=== PATIENT | male | born 1960 | race African-American/Black ===

== ENCOUNTER 2022-09-14 15:44 | Inpatient (IN) | payer MEDICARE, MEDICAID ==
[~2022-09-14] VITALS: Ht 175.3 cm; Wt 54.9 kg
[2022-09-14] MEDS ORDERED: SODIUM CHLORIDE 0.9% 1,000 ML IV ONE (16:30)
[2022-09-14 16:49] LABS: BASOPHILS % 1.4 % (0.0-2.0); EOSINOPHILS % 1.4 % (0.0-5.0); HEMATOCRIT. 26.5 % (42.0-52.0); HEMOGLOBIN. 8.5 g/dL (14.0-18.0); MEAN CORPUSCULAR HEMOGLOBIN 27.4 pg (28.0-32.0); MEAN CORPUSCULAR VOLUME 85.6 fL (80.0-94.0); MEAN PLATELET VOLUME 8.1 fl (7.4-10.4); NEUTROPHILS % 59.2 % (40.0-76.0); PLATELET 375 x1000/uL (130-400); RED BLOOD CELL COUNT 3.09 mill/uL (4.7-6.1); RED CELL DISTRIBUTION WIDTH 22.3 % (11.6-14.6)
[2022-09-14 16:50] LABS: CLARITY URINE CLEAR (CLEAR); COLOR URINE YELLOW (YELLOW); KETONES URINE NEGATIVE (NEGATIVE); LEUKOCYTE ESTERASE URINE NEGATIVE (NEGATIVE); NITRITE URINE NEGATIVE (NEGATIVE); OCCULT BLOOD URINE TRACE (NEGATIVE); PH URINE 5.5 (4.5-8.0); PROTEIN URINE TRACE (NEGATIVE); SPECIFIC GRAVITY URINE 1.029 (1.005-1.030); UROBILINOGEN URINE 0.2 E.U./dL (0.2-1.0)
[2022-09-14 16:55] LABS: CHLORIDE 90 mEq/L (98-107)
[2022-09-14 17:44] LABS: PLATELET ESTIMATE NORMAL
[2022-09-14 18:18] LABS: BG BASE EXCESS -2.2 mmol/L (-2.0-2.0); BG CARBOXYHEMOGLOBIN 0.8 % (0.5-1.5); BG FRACTION INSPIRED OXYGEN 21; BG HCO3 ACT 21.9 mmol/L (22.0-26.0); BG METHEMOGLOBIN 0.2 % (0.0-1.5); BG PCO2 34.6 mmHg (35.0-45.0); BG PH 7.419 (7.350-7.450); BG PO2 89.7 mmHg (75.0-100.0); BG SAMPLE SITE RIGHT RADIAL; BG TOTAL HEMOGLOBIN 9.7 g/dL (12.0-18.0); BG VENT MODE ROOM AIR
[2022-09-14] MEDS ORDERED: INSULIN REGULAR (HUMULIN R) 300UNITS/3ML VIAL SUBCUT ONE (18:45)
[2022-09-14] MEDS ORDERED: CLONIDINE 0.1MG TABLET PO PRN (23:15)
[2022-09-14] MEDS ORDERED: HYDROCODONE/ACETAMINOPHEN 5/325MG TABLET PO PRN (23:15)
[2022-09-14] MEDS ORDERED: ONDANSETRON HCL 4MG/2ML INJ IV PRN (23:15)
[2022-09-14] MEDS ORDERED: IPRATROPIUM/ALBUTEROL 0.5-3(2.5)MG/3ML NEB NEB PRN (23:15)
[2022-09-14] MEDS ORDERED: MAGNESIUM/ALUMINUM HYDROXIDE/SIMETHICONE 30ML UDC PO PRN (23:15)
[2022-09-15] MEDS: SODIUM CHLORIDE 0.9% 1,000 ML IV SCH (00:05)
[2022-09-15 01:00] VITALS: BP_SYST 135; BP_DIAS 65; BP_DIAS 75
[2022-09-15 01:20] LABS: *AMPHETAMINES SCREEN URINE NEGATIVE (NEGATIVE); *BARBITURATES SCREEN URINE NEGATIVE (NEGATIVE); *BENZODIAZEPINES SCREEN URINE NEGATIVE (NEGATIVE); *COCAINE SCREEN URINE PRESUMTIVE POSITIVE (NEGATIVE); CANNABINOID URINE SCREEN NEGATIVE (NEGATIVE); METHADONE URINE SCREEN NEGATIVE (NEGATIVE); OPIATES URINE SCREEN NEGATIVE (NEGATIVE); PHENCYCLIDINE URINE SCREEN NEGATIVE (NEGATIVE)
[2022-09-15 03:03] LABS: HEPATITIS B SURFACE ANTIGEN REACTIVE PEND CONFIR
[2022-09-15] MEDS: ENOXAPARIN 40MG/0.4ML SYR SUBCUT SCH (10:47)
[2022-09-15] MEDS: INSULIN LISPRO 100 UNITS/ML SUBCUT SCH ×3 (10:48→17:20)
[2022-09-15 12:00] VITALS: BP 137/71
[2022-09-15] MEDS ORDERED: AZITHROMYCIN 500 MG TABLET PO NR (17:00)
[2022-09-15] MEDS ORDERED: CEFTRIAXONE 1 G PREMIX 50 ML IV SCH (17:00)
[2022-09-15 20:00] VITALS: BP 118/79
[2022-09-15] MEDS: INSULIN GLARGINE 100 UNITS/ML SUBCUT SCH (21:19)
[2022-09-16] VITALS: BP 123/74
[2022-09-16 04:00] VITALS: BP 166/76
[2022-09-16] MEDS: INSULIN LISPRO 100 UNITS/ML SUBCUT SCH ×3 (06:35→18:13)
[2022-09-16 08:00] VITALS: BP 145/84
[2022-09-16] MEDS: ENOXAPARIN 40MG/0.4ML SYR SUBCUT SCH (09:00)
[2022-09-16] MEDS: AZITHROMYCIN 500 MG TABLET PO SCH (09:21)
[2022-09-16 16:00] VITALS: BP 127/64
[2022-09-16] MEDS ORDERED: NALOXONE HCL 0.4MG/ML VIAL IV PRN (16:00)
[2022-09-16] MEDS: CEFTRIAXONE 1,000 MG in DEXTROSE 5% WATER 50 ML IV SCH (18:13)
[2022-09-16 20:00] VITALS: BP 141/88
[2022-09-16] MEDS: INSULIN GLARGINE 100 UNITS/ML SUBCUT SCH (21:11)
[2022-09-16] MEDS: ACETAMINOPHEN 325MG TABLET PO PRN (22:59)
[2022-09-17] VITALS: BP 127/65
[2022-09-17] MEDS: SODIUM CHLORIDE 0.9% 1,000 ML IV SCH ×3 (01:33→21:26)
[2022-09-17 04:00] VITALS: BP 139/76
[2022-09-17 08:00] VITALS: BP 159/79
[2022-09-17] MEDS: ENOXAPARIN 40MG/0.4ML SYR SUBCUT SCH (10:09)
[2022-09-17] MEDS: AZITHROMYCIN 500 MG TABLET PO SCH (10:10)
[2022-09-17 11:13] LABS: BASOPHILS % 1.2 % (0.0-2.0); EOSINOPHILS % 0.8 % (0.0-5.0); HEMATOCRIT. 29.7 % (42.0-52.0); HEMOGLOBIN. 9.8 g/dL (14.0-18.0); LYMPHOCYTES % 23.6 % (20.0-50.0); MEAN CORPUSCULAR HEMOGLOBIN 27.2 pg (28.0-32.0); MEAN CORPUSCULAR VOLUME 82.6 fL (80.0-94.0); MEAN PLATELET VOLUME 7.6 fl (7.4-10.4); MONOCYTES % 9.8 % (2.0-8.0); NEUTROPHILS % 64.6 % (40.0-76.0); PLATELET 377 x1000/uL (130-400); RED BLOOD CELL COUNT 3.59 mill/uL (4.7-6.1); RED CELL DISTRIBUTION WIDTH 21.2 % (11.6-14.6)
[2022-09-17 11:49] LABS: CHLORIDE 97 mEq/L (98-107)
[2022-09-17 12:12] VITALS: BP 124/58
[2022-09-17] MEDS: INSULIN LISPRO 100 UNITS/ML SUBCUT SCH ×3 (13:11→19:50)
[2022-09-17 16:00] VITALS: BP 138/60
[2022-09-17] MEDS: CEFTRIAXONE 1,000 MG in DEXTROSE 5% WATER 50 ML IV SCH (19:03)
[2022-09-17 20:00] VITALS: BP 140/74
[2022-09-17] MEDS: INSULIN GLARGINE 100 UNITS/ML SUBCUT SCH (22:00)
[2022-09-18] VITALS: BP 140/69
[2022-09-18 04:00] VITALS: BP 132/99
[2022-09-18] MEDS: SODIUM CHLORIDE 0.9% 1,000 ML IV SCH ×2 (07:15→17:15)
[2022-09-18 08:00] VITALS: BP 140/66
[2022-09-18 08:07] LABS: BASOPHILS % 1.3 % (0.0-2.0); EOSINOPHILS % 0.5 % (0.0-5.0); HEMATOCRIT. 27.7 % (42.0-52.0); HEMOGLOBIN. 9.4 g/dL (14.0-18.0); LYMPHOCYTES % 27.5 % (20.0-50.0); MEAN CORPUSCULAR HEMOGLOBIN 27.4 pg (28.0-32.0); MEAN CORPUSCULAR VOLUME 81.2 fL (80.0-94.0); MEAN PLATELET VOLUME 7.7 fl (7.4-10.4); MONOCYTES % 13.5 % (2.0-8.0); NEUTROPHILS % 57.2 % (40.0-76.0); PLATELET 360 x1000/uL (130-400); RED BLOOD CELL COUNT 3.42 mill/uL (4.7-6.1); RED CELL DISTRIBUTION WIDTH 20.6 % (11.6-14.6)
[2022-09-18 09:18] LABS: CHLORIDE 96 mEq/L (98-107)
[2022-09-18] MEDS: ENOXAPARIN 40MG/0.4ML SYR SUBCUT SCH (09:52)
[2022-09-18] MEDS: AZITHROMYCIN 500 MG TABLET PO SCH (09:54)
[2022-09-18 12:00] VITALS: BP 142/67
[2022-09-18] MEDS: INSULIN LISPRO 100 UNITS/ML SUBCUT SCH ×3 (12:55→19:56)
[2022-09-18 16:00] VITALS: BP 158/68
[2022-09-18] MEDS: CEFTRIAXONE 1,000 MG in DEXTROSE 5% WATER 50 ML IV SCH (18:30)
[2022-09-18] MEDS ORDERED: SODIUM CHLORIDE 10% FOR INH 15ML VIAL NEB INH NR (21:00)
[2022-09-18] MEDS: INSULIN GLARGINE 100 UNITS/ML SUBCUT SCH (21:40)
[2022-09-19] VITALS: BP 131/70
[2022-09-19] MEDS: SODIUM CHLORIDE 0.9% 1,000 ML IV SCH ×2 (03:14→12:26)
[2022-09-19 04:00] VITALS: BP 130/70
[2022-09-19 08:00] VITALS: BP 134/65
[2022-09-19] MEDS: ENOXAPARIN 40MG/0.4ML SYR SUBCUT SCH (09:49)
[2022-09-19] MEDS: INSULIN LISPRO 100 UNITS/ML SUBCUT SCH ×3 (09:49→17:20)
[2022-09-19] MEDS: AZITHROMYCIN 500 MG TABLET PO SCH (09:49)
[2022-09-19 12:00] VITALS: BP 147/79
[2022-09-19] MEDS ORDERED: SODIUM CHLORIDE 10% FOR INH 15ML VIAL NEB INH NR (15:00)
[2022-09-19] MEDS: PANTOPRAZOLE SODIUM 40 MG/VIAL IV SCH (17:11)
[2022-09-19] MEDS: CEFTRIAXONE 1,000 MG in DEXTROSE 5% WATER 50 ML IV SCH (18:20)
[2022-09-19 18:55] LABS: TOTAL IRON BINDING CAPACITY 161 ug/dL (250-450)
[2022-09-19 19:18] LABS: FERRITIN 1404 ng/mL (22-322); VITAMIN B12 SERUM 774 pg/mL (211-911)
[2022-09-19 20:00] VITALS: BP 140/79
[2022-09-19] MEDS: INSULIN GLARGINE 100 UNITS/ML SUBCUT SCH (21:54)
[2022-09-20 08:00] VITALS: BP 125/67
[2022-09-20 09:06] LABS: BASOPHILS % 1.2 % (0.0-2.0); EOSINOPHILS % 0.8 % (0.0-5.0); HEMATOCRIT. 27.4 % (42.0-52.0); HEMOGLOBIN. 9.1 g/dL (14.0-18.0); LYMPHOCYTES % 16.4 % (20.0-50.0); MEAN CORPUSCULAR HEMOGLOBIN 27.4 pg (28.0-32.0); MEAN CORPUSCULAR VOLUME 82.3 fL (80.0-94.0); MEAN PLATELET VOLUME 8.1 fl (7.4-10.4); MONOCYTES % 14.2 % (2.0-8.0); NEUTROPHILS % 67.4 % (40.0-76.0); PLATELET 417 x1000/uL (130-400); RED BLOOD CELL COUNT 3.33 mill/uL (4.7-6.1); RED CELL DISTRIBUTION WIDTH 20.4 % (11.6-14.6)
[2022-09-20 09:24] LABS: CHLORIDE 95 mEq/L (98-107)
[2022-09-20] MEDS: PANTOPRAZOLE SODIUM 40 MG/VIAL IV SCH (10:47)
[2022-09-20] MEDS: ENOXAPARIN 40MG/0.4ML SYR SUBCUT SCH (10:48)
[2022-09-20 12:00] VITALS: BP 139/56
[2022-09-20 16:00] VITALS: BP 134/62
[2022-09-20 20:00] VITALS: BP 107/86
[2022-09-20] MEDS: INSULIN GLARGINE 100 UNITS/ML SUBCUT SCH (23:00)
[2022-09-21] VITALS: BP 119/63
[2022-09-21 04:00] VITALS: BP 163/74
[2022-09-21 04:10] LABS: QFT MITOGEN VALUE 5.82 IU/mL (.); QFT TB GOLD PLUS Positive (Negative); QFT TB1 AG VALUE >10.00 IU/mL (.)
[2022-09-21] MEDS: ENOXAPARIN 40MG/0.4ML SYR SUBCUT SCH (09:00)
[2022-09-21] MEDS: PANTOPRAZOLE SODIUM 40 MG/VIAL IV SCH (09:00)
[2022-09-21 09:12] LABS: ABSOLUTE BASOPHILS 0.1 x10E3/uL (0.0-0.2); ABSOLUTE EOSINOPHILS 0.1 x10E3/uL (0.0-0.4); ABSOLUTE LYMPHOCYTES 3.2 x10E3/uL (0.7-3.1); ABSOLUTE MONOCYTES 1.2 x10E3/uL (0.1-0.9); ABSOLUTE NEUTROPHILS 6.5 x10E3/uL (1.4-7.0); BASOPHILS 1 % (Not Estab.); HEMATOCRIT 30.3 % (37.5-51.0); HEMOGLOBIN 9.8 g/dL (13.0-17.7); IMMATURE GRANULOCYTES 0 % (Not Estab.); LYMPHOCYTES 29 % (Not Estab.); MEAN CORPUSCULAR HEMOGLOBIN 27.2 pg (26.6-33.0); MEAN CORPUSCULAR HGB CONC. 32.3 g/dL (31.5-35.7); MEAN CORPUSCULAR VOLUME 84 fL (79-97); MONOCYTES 11 % (Not Estab.); NEUTROPHILS 58 % (Not Estab.); PLATELETS 438 x10E3/uL (150-450); RED CELL DISTRIBUTION WIDTH 17.8 % (11.6-15.4); WBC 11.1 x10E3/uL (3.4-10.8)
[2022-09-21] MEDS: SODIUM CHLORIDE 0.9% 1,000 ML IV SCH ×2 (09:12→15:15)
[2022-09-21] MEDS ORDERED: SODIUM CHLORIDE 3% FOR INH 15ML VIAL NEB INH NR (11:45)
[2022-09-21] MEDS ORDERED: SODIUM CHLORIDE 10% FOR INH 15ML VIAL NEB INH NR (11:45)
[2022-09-21 13:06] LABS: % CD 3 POS. LYMPHOCYTES 83.8 % (57.5-86.2); % CD 4 POS. LYMPHOCYTES 13.6 % (30.8-58.5); % CD 8 POS. LYMPH 69.6 % (12.0-35.5); ABSOLUTE CD 3 2682 /uL (622-2402); ABSOLUTE CD 4 HELPER 435 /uL (359-1519); ABSOLUTE CD 8 SUPPRESSOR 2227 /uL (109-897)
[2022-09-21 20:00] VITALS: BP 122/58
[2022-09-21] MEDS: INSULIN GLARGINE 100 UNITS/ML SUBCUT SCH (21:37)
[2022-09-22] VITALS: BP 120/50
[2022-09-22] MEDS: SODIUM CHLORIDE 0.9% 1,000 ML IV SCH (01:15)
[2022-09-22 04:00] VITALS: BP 122/52
[2022-09-22] MEDS ORDERED: SODIUM CHLORIDE 3% FOR INH 4ML UD NEB INH SCH (05:00)
[2022-09-22 08:00] VITALS: BP 125/70
[2022-09-22] MEDS: ENOXAPARIN 40MG/0.4ML SYR SUBCUT SCH (09:00)
[2022-09-22] MEDS ORDERED: PANTOPRAZOLE 40MG DR TABLET PO SCH (11:30)
[2022-09-22] MEDS ORDERED: DEXTROSE 50% WATER 50ML SYRINGE IV PRN (18:30)
[2022-09-22] MEDS: INSULIN LISPRO 100 UNITS/ML SUBCUT SCH (20:11)
[2022-09-22] MEDS: BLOOD SUGAR DIAGNOSTIC STRIP TEST SCH (21:18)
[2022-09-22 22:14] VITALS: BP 136/80
[2022-09-22] MEDS: FAMOTIDINE 20MG TABLET PO SCH (22:47)
[2022-09-22] MEDS: INSULIN GLARGINE 100 UNITS/ML SUBCUT SCH (22:51)
[2022-09-23 06:53] VITALS: BP 123/86
[2022-09-23] MEDS: BLOOD SUGAR DIAGNOSTIC STRIP TEST SCH ×4 (07:20→21:00)
[2022-09-23] MEDS: INSULIN LISPRO 100 UNITS/ML SUBCUT SCH ×4 (07:50→21:00)
[2022-09-23 08:04] VITALS: BP 146/82
[2022-09-23] MEDS: ENOXAPARIN 40MG/0.4ML SYR SUBCUT SCH (09:00)
[2022-09-23] MEDS: FAMOTIDINE 20MG TABLET PO SCH ×2 (09:00→22:37)
[2022-09-23 12:00] VITALS: BP 128/80
[2022-09-23 16:00] VITALS: BP 123/86
[2022-09-23] MEDS: INSULIN GLARGINE 100 UNITS/ML SUBCUT SCH (22:41)
[2022-09-24 01:29] VITALS: BP 138/62
[2022-09-24] MEDS: BLOOD SUGAR DIAGNOSTIC STRIP TEST SCH ×4 (07:20→21:00)
[2022-09-24 08:20] VITALS: BP 130/81
[2022-09-24] MEDS: ENOXAPARIN 40MG/0.4ML SYR SUBCUT SCH (09:00)
[2022-09-24] MEDS: FAMOTIDINE 20MG TABLET PO SCH ×2 (09:44→22:03)
[2022-09-24] MEDS: INSULIN LISPRO 100 UNITS/ML SUBCUT SCH ×4 (09:51→21:00)
[2022-09-24 12:00] VITALS: BP 135/74
[2022-09-24 16:00] VITALS: BP 125/54
[2022-09-24 21:09] VITALS: BP 98/80
[2022-09-24] MEDS: INSULIN GLARGINE 100 UNITS/ML SUBCUT SCH (22:00)
[2022-09-25] VITALS: BP 145/84
[2022-09-25 04:00] VITALS: BP 144/88
[2022-09-25] MEDS: BLOOD SUGAR DIAGNOSTIC STRIP TEST SCH ×4 (07:22→21:32)
[2022-09-25] MEDS: FAMOTIDINE 20MG TABLET PO SCH ×2 (09:00→21:40)
[2022-09-25] MEDS: ENOXAPARIN 40MG/0.4ML SYR SUBCUT SCH (09:00)
[2022-09-25] MEDS: INSULIN LISPRO 100 UNITS/ML SUBCUT SCH ×4 (09:39→21:00)
[2022-09-25 20:00] VITALS: BP 116/55
[2022-09-25] MEDS: INSULIN GLARGINE 100 UNITS/ML SUBCUT SCH (21:38)
[2022-09-25 23:52] VITALS: BP 136/84
[2022-09-26 04:00] VITALS: BP 127/65
[2022-09-26 08:00] VITALS: BP 113/57
[2022-09-26] MEDS: FAMOTIDINE 20MG TABLET PO SCH (10:26)
[2022-09-26] MEDS: ACETAMINOPHEN 325MG TABLET PO PRN (10:27)
[2022-09-26] MEDS: ENOXAPARIN 40MG/0.4ML SYR SUBCUT SCH (10:27)
[2022-09-26] MEDS: INSULIN LISPRO 100 UNITS/ML SUBCUT SCH ×3 (10:33→18:20)
[2022-09-26] MEDS ORDERED: LANC-335 MC (11:02)
[2022-09-26] MEDS ORDERED: LANTUSUD SUBCUT (11:02)
[2022-09-26 12:00] VITALS: BP 104/46
[2022-09-26] MEDS: BLOOD SUGAR DIAGNOSTIC STRIP TEST SCH ×2 (13:02→18:01)
[2022-09-26 16:00] VITALS: BP 113/59
[2022-09-26 16:09] LABS: BASOPHILS % 1.5 % (0.0-2.0); EOSINOPHILS % 1.4 % (0.0-5.0); HEMATOCRIT. 25.4 % (42.0-52.0); HEMOGLOBIN. 8.5 g/dL (14.0-18.0); LYMPHOCYTES % 22.7 % (20.0-50.0); MEAN CORPUSCULAR HEMOGLOBIN 27.6 pg (28.0-32.0); MEAN PLATELET VOLUME 7.8 fl (7.4-10.4); MONOCYTES % 13.2 % (2.0-8.0); NEUTROPHILS % 61.2 % (40.0-76.0); PLATELET 649 x1000/uL (130-400); RED CELL DISTRIBUTION WIDTH 19.9 % (11.6-14.6)
[2022-09-26 16:34] LABS: CHLORIDE 95 mEq/L (98-107)
[2022-09-26 17:14] VITALS: BP 104/46
[2022-09-27 13:06] LABS: HBSAG CONFIRMATION Positive (.); HBSAG SCREEN Confirm. indicated (Negative)
== END 2022-09-26 18:50 | disposition home or self-care (01) | DRG 638 ==
LOC: ER 15:44 → EDBEDREQ 20:31 → 6EST 20:45 → EDBEDREQ 20:47 → 6EST 09-18 11:27
PROVIDERS: ADMIT Internal Medicine; ATTEND Internal Medicine
DX: E11.65 Type 2 diabetes mellitus with hyperglycemia (principal); A15.0 Tuberculosis of lung; B19.10 Unspecified viral hepatitis B without hepatic coma; E87.1 Hypo-osmolality and hyponatremia; E44.0 Moderate protein-calorie malnutrition; Z68.1 Body mass index [BMI] 19.9 or less, adult; D64.9 Anemia, unspecified; E83.42 Hypomagnesemia; E88.09 Other disorders of plasma-protein metabolism, not elsewhere classified; R74.8 Abnormal levels of other serum enzymes; R74.01 Elevation of levels of liver transaminase levels; R59.0 Localized enlarged lymph nodes; F14.90 Cocaine use, unspecified, uncomplicated; Z79.4 Long term (current) use of insulin; Z22.7 Latent tuberculosis; Z91.14 Patient's other noncompliance with medication regimen; Z21 Asymptomatic human immunodeficiency virus [HIV] infection status; T38.3X6A Underdosing of insulin and oral hypoglycemic [antidiabetic] drugs, initial encounter
CPT/HCPCS: 36415; 36600; 71045; 71250; 76700; 80048; 80053; 80076; 80305; 81003; 82375; 82607; 82728; 82746; 82805; 82962; 83036; 83540; 83550; 83735; 84145; 85025; 85044; 86359; 86360; 86480; 86635; 86705; 86709; 86803; 87070; 87116; 87340; 87426; 93005; 94640; 99285; C9113; C9803; J0696; J1650; J1815; J2405; J7030; J7060; J7131